=== PATIENT | female | born 1995 | race Caucasian/White ===

== ENCOUNTER 2017-04-11 14:21 | Emergency (ER) | payer MEDICAID, OTHER ==
[2017-04-11 14:35] VITALS: BP 137/68
[2017-04-11] MEDS ORDERED: IBUPROFEN 800 MG TABLET PO ONE (14:59)
[2017-04-11] MEDS ORDERED: LIDOCAINE 5% (700 MG) TRANSDERMAL ADH..PATCH TP ONE (14:59)
[2017-04-11] MEDS ORDERED: PREDNISONE 20 MG TABLET PO ONE (14:59)
--- NOTE | 2017-04-11 15:05 | ER Document Report ---
HPI - HPI Patient complains to provider of: RLE pain Onset: Other - 6 wks Onset/Duration: Worse Quality of pain: Sharp Pain Level: 5 Context: Patient presents complaining of right lower extremity pain off and on for the past 6 weeks that became persistent yesterday. Patient denies any injury, fever or urinary symptoms. Patient denies any IV drug use. Patient denies any low back pain. Patient did recently start a new job that requires a lot of standing. Patient states that pain radiates along posterior aspect of her right buttocks to her foot. She denies any numbness. Associated Symptoms: Other - Right lower extremity pain. denies: Fever, Headache Exacerbated by: Standing, Movement, Walking Relieved by: Denies Similar symptoms previously: No Recently seen / treated by doctor: No - ROS ROS below otherwise negative: Yes Systems Reviewed and Negative: Yes All other systems reviewed and negative - CONSTITUTIONAL Constitutional: DENIES: Fever - NEURO Neurology: DENIES: Headache, Weakness - CARDIOVASCULAR Cardiovascular: DENIES: Chest pain - GASTROINTESTINAL Gastrointestinal: DENIES: Nausea - URINARY Urinary: DENIES: Dysuria, Urgency, Frequency - MUSCULOSKELETAL Musculoskeletal: REPORTS: Extremity pain. DENIES: Back Pain, Neck Pain - DERM Skin Color: Normal Skin Problems: None Past Medical History - General Information source: Patient - Social History Smoking Status: Never Smoker Chew tobacco use (# tins/day): No Frequency of alcohol use: None Drug Abuse: None Occupation: [employer] Lives with: Family Family History: Reviewed & Not Pertinent Patient has suicidal ideation: No Patient has homicidal ideation: No - Medical History Medical History: Negative Renal/ Medical History: Denies: Hx Peritoneal Dialysis Past Surgical History: Reports: Hx Section Vertical Provider Document - CONSTITUTIONAL Agree With Documented VS: Yes Exam Limitations: No Limitations General Appearance: WD/WN, No Apparent Distress Notes: PHYSICAL EXAMINATION: GENERAL: Well-appearing, well-nourished and in no acute distress. HEAD: Atraumatic, normocephalic. EYES: sclera clear, anicteric, conjunctiva are normal. ENT: nares patent, Moist mucous membranes. NECK: Normal range of motion, supple no lymphadenopathy LUNGS: respirations unlabored HEART: Regular rate and rhythm without murmurs EXTREMITIES: Normal range of motion, no pitting or edema. No cyanosis. Gait normal, pt ambulates without difficulty BACK: Patient with right SI joint tenderness, no lumbar midline tenderness, no deformities or step-offs. No CVA tenderness. NEUROLOGICAL: Cranial nerves grossly intact. Normal speech, normal gait. No saddle anesthesia. 2+ patellar reflexes, no footdrop PSYCH: Normal mood, normal affect. SKIN: Warm, Dry, normal turgor, no rashes or lesions noted. - INFECTION CONTROL TRAVEL OUTSIDE OF THE [place] IN LAST 30 DAYS: No - RESPIRATORY O2 Sat by Pulse Oximetry: 100 Course - Re-evaluation Re-evalutation: 04/11/17 15:27 The patient presents with right lower extremity pain without signs of spinal cord compression, cauda equina syndrome, infection, aneurysm, or other serious etiology. The patient is neurologically intact. Given the extremely risk of these diagnoses further testing and evaluation for these possibilities does not appear to be indicated at this time. Patient has been instructed to return if the symptoms worsen or change in any way. - Vital Signs Vital signs: Temp Pulse Resp BP Pulse Ox 98.6 F 93 18 137/68 H 100 04/11/17 14:32 04/11/17 14:32 04/11/17 14:32 04/11/17 14:32 04/11/17 14:32 Discharge - Discharge Clinical Impression: Sciatica Qualifiers: Laterality: right Qualified Code(s): M54.31 - Sciatica, right side Condition: Stable Disposition: HOME, SELF-CARE Instructions: Oral Narcotic Medication ([facility]), Sciatica ([facility]), Steroid Medication Additional Instructions: Return immediately for any new or worsening symptoms Followup with your primary care provider, call tomorrow to make a followup appointment Prescriptions: Oxycodone HCl/Acetaminophen [Percocet 5-325 mg Tablet] 1 tab PO ASDIR PRN #15 tablet PRN Reason: Prednisone [Deltasone 20 mg Tablet] 3 tab PO DAILY 4 Days tablet Forms: Return to Work Referrals: [facility] [Provider Group] - Follow up as needed [facility] ([place], [place]) [Provider Group] - Follow up as needed
== END 2017-04-11 15:18 | disposition home or self-care (01) ==
LOC: ER 14:21
DX: M54.31 Sciatica, right side (principal); M79.604 Pain in right leg
CPT/HCPCS: 99283; J7512